=== PATIENT | female | born 2000 | race Caucasian/White ===

== ENCOUNTER 2020-08-16 12:27 | Emergency (ER) | payer OTHER ==
[~2020-08-16] VITALS: Ht 170.2 cm; Wt 59.4 kg
[2020-08-16 12:27] VITALS: BP 92/74
--- NOTE | 2020-08-16 12:27 | NUR ---
Patient BIBA ALS accompanied by Ines huerta 101, transferred to bed 11. RN evaluating patient at bedside.
[2020-08-16] MEDS ORDERED: NACL 0.9% 1,000 ML IV ONE (12:55)
[2020-08-16 13:13] LABS: BASOPHILS # (AUTO) 0.1 K/uL (0.00-0.22); BASOPHILS % (AUTO) 2.5 % (0.0-2.0); EOSINOPHILS % (AUTO) 0.5 % (0.0-4.0); HEMOGLOBIN 12.6 g/dL (12.0-16.0); LYMPHOCYTES # (AUTO) 0.7 K/uL (2.5-16.5); LYMPHOCYTES % (AUTO) 26.1 % (20.5-51.1); MEAN CORPUSCULAR HEMOGLOBIN 32 pg (27-31); MEAN CORPUSCULAR HGB CONC 34 g/dL (33-37); MEAN CORPUSCULAR VOLUME 94.7 fL (80-94); MONOCYTES # (AUTO) 0.3 K/uL (0.8-1.0); MONOCYTES % (AUTO) 9.6 % (1.7-9.3); NEUTROPHILS # (AUTO) 1.7 K/uL (1.8-7.7); NEUTROPHILS % (AUTO) 61.3 % (42.2-75.2); PLATELET COUNT (AUTO) 233 K/uL (140-450); RED CELL DISTRIBUTION WIDTH 12.8 % (11.6-13.7); WHITE BLOOD COUNT (AUTO) 2.7 K/uL (4.5-11.0)
[2020-08-16 13:55] LABS: ALBUMIN 4.2 g/dL (3.4-5.0); ANION GAP 12.3 (8-16); CARBON DIOXIDE 26.5 mmol/L (21-32); CREATININE 0.6 mg/dL (0.6-1.3); POTASSIUM 4.8 mmol/L (3.5-5.1); THYROID STIMULATING HORMONE 0.42 uIU/mL (0.34-3.74); TOTAL BILIRUBIN 0.4 mg/dL (0.0-1.0)
[2020-08-16 14:50] VITALS: BP 97/70
--- NOTE | 2020-08-16 14:51 | NUR ---
Cleared for d/c by Dr Torres; d/c with instructions on Near Syncope; pt fully understands all materials given re c/c; has no further questions; aox4; VSS; ambulatory with steady gait; no signs of acute distress
== END 2020-08-16 14:51 | disposition home or self-care (01) ==
LOC: MED 12:27
DX: R55 Syncope and collapse (principal); D72.819 Decreased white blood cell count, unspecified; E87.1 Hypo-osmolality and hyponatremia; F41.9 Anxiety disorder, unspecified
CPT/HCPCS: 36415; 80053; 81025; 82948; 84443; 84484; 85025; 93005; 96360; 99284; J7030